=== PATIENT | female | born 1985 | race Caucasian/White ===

== ENCOUNTER 2017-12-02 10:13 | Day surgery (SDC) | payer OTHER ==
--- NOTE | 2017-12-01 05:18 | HP ---
PREOPERATIVE HISTORY AND PHYSICAL: DATE OF SURGERY/ADMISSION: 12/02/17 - [facility] DATE OF OFFICE VISIT/ENCOUNTER: 11/30/17 ATTENDING SURGEON: Liberty Mendoza MD * (DICTATED BY RIKKI NICOLE) PROCEDURE: Left small finger radial collateral ligament repair. CHIEF COMPLAINT: Left small finger MP joint injury. HISTORY OF PRESENT ILLNESS: This is a 32-year-old female, who complains of an injury to the left small finger on 11/25/17. Her 16-year-old son who is autistic, grabbed the finger, folded and twisted it. She was seen in the emergency room at [facility] and had an x-ray, which shows a displaced fracture at the origin of the radial collateral ligament of the small finger MP joint. After review of x-rays and examination by Dr. Mendoza, she has consented to proceed with surgical intervention for this problem in the form of a left small finger radial collateral ligament repair. PAST MEDICAL HISTORY: History of kidney stones. PAST SURGICAL HISTORY: Oral surgery. MEDICATIONS: None. ALLERGIES: No known drug allergies. FAMILY MEDICAL HISTORY: Diabetes, heart disease, and cancer. SOCIAL HISTORY: The patient is not currently employed. She takes care of her 16- year-old son. She is a current smoker. She reports smoking less than a half-a- pack per day and she reports 30 years of smoking history since age 2. She denies recreational drug use and denies alcohol. REVIEW OF SYSTEMS: General: Negative for fevers, chills, or night sweats. No known anesthesia problems. HEENT: Negative for headache, lightheadedness, or syncopal episodes. Integumentary: Negative for abrasions, lesions, or open wounds. Cardiothoracic: Negative for hypertension, chest pain, palpitations, or edema. Pulmonary: Negative for shortness of breath with exertion, chronic cough, COPD. GI: Negative for nausea, vomiting, diarrhea, constipation, or GERD. : Negative for nocturia, urinary frequency, urgency, history of UTIs and currently kidney stones. Musculoskeletal: Positive for current complaint. Neurological: Negative for paresthesias, numbness, history of seizure, stroke , or epilepsy. Endocrine: Negative for diabetes and thyroid issues. Hematologic: Negative for easy bruising, anemia, excessive bleeding, or history of DVT. Infectious Disease: Positive for history of MRSA in 2002 lesion on the patient's chest. Negative for hepatitis C and HIV. PHYSICAL EXAMINATION GENERAL: Well-developed, well-nourished 32-year-old female, in no acute distress. VITAL SIGNS: Height 5 feet 5 inches, weight 202 pounds, pulse rate 60, blood pressure 120/80. HEENT: Normocephalic, atraumatic. Pupils are equal, round, and reactive to light and accommodation. Throat is clear. NECK: Supple. No palpable lymph nodes. PULMONARY: Lungs are clear to auscultation bilaterally. No wheezes, rales, or rhonchi. CARDIOVASCULAR: Regular rate and rhythm. S1 and S2. No murmurs, rubs, or gallops. No edema. ABDOMEN: Positive bowel sounds, soft, nontender. NEUROLOGIC: Alert and oriented x3. Cranial nerves II through XII are intact. Sensation is intact to light touch. MUSCULOSKELETAL: On exam of the left hand, there is ecchymosis and swelling around the MP joint of the small finger. She cannot fully flex the finger very well. She does have full extension. Any ulnar directed motion of the finger is very painful. Skin is intact. Neurovascular function is intact. IMAGING STUDIES: X-rays of the left small finger show a displaced fracture at the origin of the radial collateral ligament at the MP joint of the small finger. IMPRESSION: Avulsion of origin of radial collateral ligament of left small finger MP joint. PLAN: The patient is scheduled to undergo a left small finger radial collateral ligament repair with Dr. Mendoza on 12/02/17. She will return to the office in 10 days postop for followup and suture removal. A prescription for tramadol was e- scribed to the patient's pharmacy for postoperative pain management. RIKKI NICOLE [id number]/[facility] #: [id number] DENYS
[~2017-12-02 10:13] MED LIST: Buffered Lidocaine 0.9% SYRIN* 5 ML/SYR SYRINGE INTRADERM ONE; Ibuprofen TAB* 400 MG PO ONE; Lidocaine 1% INJ* 10 MG/ML 30 ML SDV ONE; Sodium Citrate/Citric Acid* 15 ML UDC PO ONE
[2017-12-02] MEDS ORDERED: Ibuprofen TAB* 400 MG ONE (10:18)
[2017-12-02] MEDS ORDERED: ceFAZolin 2 GM in 100 MLS NS (*) BAG IVPB ONE (10:18)
[2017-12-02] MEDS ORDERED: Sodium Citrate/Citric Acid* 15 ML UDC ONE (10:19)
[2017-12-02] MEDS ORDERED: Buffered Lidocaine 0.9% SYRIN* 5 ML/SYR SYRINGE ONE (11:00)
[2017-12-02] MEDS ORDERED: Midazolam* 1 MG/ML 2 ML VIAL (2 MG) ONE (11:52)
[2017-12-02] MEDS ORDERED: fentaNYL* 50 MCG/ML 2 ML VIAL (100 MCG VIAL) ONE (11:52)
[2017-12-02] MEDS ORDERED: Propofol* 10 MG/ML 20 ML BTL IV PUSH ONE (11:53)
[2017-12-02] MEDS ORDERED: Lidocaine 0.5%* 50 ML SDV ONE (11:53)
[2017-12-02] MEDS ORDERED: oxyCODONE/Acetamin 5/325 MG* TAB PO PRN (12:16)
[2017-12-02] MEDS ORDERED: Naloxone* 0.4 MG/ML 1 ML VIAL IV PRN (12:16)
[2017-12-02 12:39] VITALS: BP 108/75
--- NOTE | 2017-12-02 21:39 | OP ---
DATE OF OPERATION: 12/02/17 [facility] DATE OF : 83 SURGEON: Liberty Mendoza MD SUMAC TANNER: RIKKI Chen ANESTHESIA: IV regional. PRE-OP DIAGNOSIS: Radial collateral ligament tear of the left small finger metacarpophalangeal joint. POST-OP DIAGNOSIS: Radial collateral ligament tear of the left small finger metacarpophalangeal joint. OPERATIVE PROCEDURE: Radial collateral ligament repair, left small finger metacarpophalangeal joint. ESTIMATED BLOOD LOSS: Zero. TOURNIQUET TIME: About 25 minutes. INDICATION FOR PROCEDURE: Shellie is a 32-year-old female who injured her left small finger when her son grabbed it and twisted it. She has on x-ray a large avulsion fracture at the origin of the radial collateral ligament of her MP joint. She has instability of the joint. She presents for repair of the ligament. DESCRIPTION OF PROCEDURE: The patient was brought to the operating room and was given a sedation anesthetic and an IV regional anesthetic with a tourniquet around her left upper arm. Skin of her left upper extremity was prepped and draped in the usual sterile fashion. A longitudinal incision was made on the radial aspect of the MP joint in the small finger. We dissected bluntly through the subcutaneous tissue down to the MP joint capsule. There was a fracture fragment, which had punctured through the MP joint capsule and was attached to the origin of the radial collateral ligament. The metacarpal neck was prepared with 2 holes for 2 mini Mitek suture anchors. The anchors were placed in the bone and then driven through the ligament and tied to resecure the ligament with its bony fragment back to the metacarpal. This gave excellent stability to an abduction stress at the MP joint. The wound was irrigated. The repair was reinforced with an extra suture of the joint capsule with 2-0 Ethibond. The skin edges were reapproximated with 4-0 nylon suture. The wound was dressed with Xeroform, 4x4, Webril, and an ulnar gutter splint including the ring finger. The patient tolerated the procedure well and was brought to the recovery room in good condition. [id number]/[facility] #: [id number] [facility]ilke
== END 2017-12-02 13:07 | disposition home or self-care (01) ==
LOC: OREAST 10:13
PROVIDERS: ATTEND Orthopaedic Surgery
DX: S63.657A Sprain of metacarpophalangeal joint of left little finger, initial encounter (principal); W50.2XXA Accidental twist by another person, initial encounter; Y92.9 Unspecified place or not applicable; F17.210 Nicotine dependence, cigarettes, uncomplicated
CPT/HCPCS: 81025; A9270-GY; C1713; J2250; J2704; J3010